=== PATIENT | female | born 1995 | race Caucasian/White ===

== ENCOUNTER 2023-11-27 11:08 | Outpatient (CLI) | payer OTHER, SELFPAY ==
[2023-11-27 11:48] LABS: Basophils Percent Auto 0.4 % (0.2-1.2); Eosinophils Percent Auto 0.6 % (0-4.4); Hematocrit 44.1 % (37.0-47.0); Hemoglobin 14.1 g/dL (12.0-15.0); Immature Granulocyte Absolute 0.01 K/mm3 (0.00-0.031); Immature Granulocyte Percent A 0.2 % (0-0.5); Lymphocytes Absolute Auto 2.38 K/mm3 (0.9-3.2); Lymphocytes Percent Auto 43.8 % (18.3-44.2); Mean Corpuscular Hemoglobin 30.3 pg (26-34); Mean Corpuscular Volume 94.6 fl (80-100); Mean Platelet Volume 10.7 fl (7.4-10.4); Monocytes Absolute Auto 0.3 K/mm3 (0.1-0.6); Monocytes Percent Auto 5.9 % (2.6-8.5); Neutrophils Absolute Auto 2.7 K/mm3 (1.3-6.7); Neutrophils Percent Auto 49.1 % (45.5-73.1); Platelet Count Result 257 k/mm3 (150-375); Red Blood Count 4.66 M/mm3 (4.2-5.4); Red Cell Distribution Width 13.4 % (11.5-14.5); White Blood Count 5.4 K/mm3 (4.5-10.0)
[2023-11-27 12:01] LABS: Alanine Aminotransferase 35 U/L (6-35); Albumin Level 4.4 g/dL (3.5-5.1); Alkaline Phosphatase 68 U/L (38-126); Anion Gap 8 mmol/L (4-12); Aspartate Amino Transferase 34 U/L (14-36); Bilirubin,Total 0.6 mg/dL (0.2-1.3); Blood Urea Nitrogen 12 mg/dL (7-17); Calcium 9.5 mg/dL (8.4-10.2); Carbon Dioxide 26 mmol/L (22-30); Chloride 103 mmol/L (98-107); Cholesterol 215 mg/dL (0-200); Estimated Glomerular Filt Rate > 60; Glucose 90 mg/dL (65-110); HDL Direct 77 mg/dL; Sodium 137 mmol/L (137-145); Triglycerides 123 mg/dL (<150)
[2023-11-27 12:12] LABS: LDL Cholesterol Direct 114 mg/dL
[2023-11-27 13:23] LABS: Hemoglobin A1C 5.5 % (<5.7)
== END 2023-11-27 11:09 | disposition home or self-care (01) ==
LOC: ANHLAB 11:16
PROVIDERS: PCP Family Medicine; Visit Provider Family Medicine
DX: R53.83 Other fatigue (principal); E78.2 Mixed hyperlipidemia; E01.0 Iodine-deficiency related diffuse (endemic) goiter; Z83.3 Family history of diabetes mellitus
CPT/HCPCS: 36415; 80053; 80061; 83036; 84443; 85025

== ENCOUNTER 2023-12-03 14:42 | Outpatient (CLI) | payer OTHER, SELFPAY ==
--- NOTE | ~2023-12-03 | US_ITS ---
EXAMINATION: US thyroid DATE: 12/03/2023 16:25 INDICATION: Iron deficiency related diffuse goiter. TECHNIQUE: Multiple ultrasound images of the thyroid were obtained. COMPARISON: None. FINDINGS: The right thyroid lobe measures 5.9 x 2.0 x 1.9 cm. The left thyroid lobe measures 5.2 x 1.2 x 1.9 c m. In the right thyroid lobe, there is a 10 mm predominantly solid, very hypoechoic, wider than tall nodule with smooth margin without echogenic foci (TI-RADS TR4). IMPRESSION: 1. Small thyroid nodule. Thyroid ultrasound is recommended in one year. Reviewed, dictated and finalized at location A.
== END 2023-12-03 14:43 | disposition home or self-care (01) ==
PROVIDERS: PCP Family Medicine; Visit Provider Family Medicine
DX: E01.0 Iodine-deficiency related diffuse (endemic) goiter (principal)
CPT/HCPCS: 76536

== ENCOUNTER 2023-12-17 10:50 | Emergency (ER) | payer OTHER, SELFPAY ==
--- NOTE | ~2023-12-17 | CT_ITS ---
EXAMINATION: CT cervical spine wo con DATE: 12/17/2023 12:22 INDICATION: Nontraumatic neck pain with numbness of the upper extremities. TECHNIQUE: Computed tomography (CT) of the cervical spine was performed without intravenous contrast. Automated exposure control and iterative reconstruction technique were employed. The dose-length pro duct was 518.50 mGy-cm. COMPARISON: None FINDINGS: Slight reversal of the normal cervical lordosis which could be positional or due to muscle spasm. No spondylolisthesis or facet subluxation. Vertebral body and disc heights are normal. No fracture. Smal l lucent hemangioma with thickened internal trabecula pattern at the C7 vertebral body. Minimal to mi ld cervical facet and uncovertebral osteoarthritis without associated neural foraminal stenosis. Ther e is suggestion of a disc bulges resulting in mild central canal stenosis at C6-C7. Cervical soft tis sues are unremarkable. Visualized upper lungs and superior mediastinum are unremarkable. IMPRESSION: 1. Minimal cervical spondylosis. No acute osseous abnormality. 2. Slight reversal of the normal cervical lordosis which could be positional or due to muscle spasm. Reviewed, dictated and finalized at location A.
--- NOTE | ~2023-12-17 | CT_ITS ---
EXAMINATION: CT brain wo con DATE: 12/17/2023 12:22 INDICATION: Headache TECHNIQUE: Computed tomography (CT) of the head was performed without intravenous contrast. Sagittal and coronal reconstructions were performed. The mA was adjusted according to patient size. Iterative reconstruction technique was employed. The dose-length product was 529.67 mGy-cm. COMPARISON: None FINDINGS: No acute intracranial hemorrhage, acute infarction or abnormal extra axial fluid collection. Ventricl es are normal and symmetric. No mass/mass effect. Mild mucosal thickening in the right ethmoid sinus. The orbits and mastoid air cells are normal. IMPRESSION: 1. Normal brain. No acute intracranial process. Reviewed, dictated and finalized at location A.
--- NOTE | ~2023-12-17 | XR_ITS ---
EXAMINATION: XR chest 1V portable 12/17/2023 14:39 INDICATION: Back pain PROCEDURE: AP portable chest COMPARISON: No prior studies for comparison. FINDINGS: The lungs are clear. The cardiomediastinal silhouette is within normal limits. There are no pleural effusions. There is no pneumothorax suspected. IMPRESSION: 1: NO ACUTE CARDIOPULMONARY DISEASE. Reviewed, dictated and finalized at location B.
[2023-12-17 11:35] VITALS: BP 161/106; PULSE 88; RESP 18; TEMP 36.4; O2SAT 100
--- NOTE | 2023-12-17 12:07 | ED.HA ---
HPI - Headache General Chief Complaint: Headache Stated Complaint: HERNANDEZ and pain between shoulders x 6 days Time Seen by Provider: 12/17/23 12:10 Female presents to the emergency room for evaluation of a headache that is been present for 6 days. Patient states that she woke up with a headache. Headache is to the back of her head radiates into her posterior the C-spine. Her pain is worse when she rotates her head to either side, and when she shrugs her shoulders. Patient denies any known injury or trauma. Was seen in the at outside urgent care several days ago given injection of Toradol and Zofran, states no relief of her symptoms. States she is working in a stressful job and notes increased stress recently. Denies any vision changes or loss. Does endorse having in her ears. Denies recent fevers. Denies IV drug use. Related Data Home Medications Medication Instructions Recorded Confirmed norethindrone 1 mg-ethinyl 1 tablet PO DAILY 11/27/23 12/22/23 estradiol 35 mcg tablet (Alyacen) Allergies Allergy/AdvReac Type Severity Reaction Status Date / Time codeine AdvReac Severe Nausea Verified 12/22/23 08:28 setraline AdvReac Severe Nausea Uncoded 12/22/23 08:28 [facility] Past Medical History Medical History Anxiety FHx: diabetes mellitus GERD (gastroesophageal reflux disease) IBS (irritable bowel syndrome) Mass of head of pancreas Thyromegaly Surgical History Surgical History Hx of cholecystectomy Family History Family History Father Malignant neoplasm of prostate Hypertension Mother Diabetes mellitus Hypertension Heart murmur Sibling Depression Asthma Anxiety Grandparent Skin cancer (melanoma) Grandparent Colon cancer Social History Social History Smoking status: Never smoker Second hand tobacco smoke exposure: No Alcohol intake: never Substance use: never Substance use type: does not use Do You Feel Safe in your Home?: Yes Lack of Transportation: No Lack of Food: Never True Current Housing: I Have Housing Concerned About Future Housing: No Difficulty Paying Gas/Electric Bills: No Difficulty Paying for Meds: No Currently Unemployed: No Education: High School Diploma/GED Difficulty w/ Childcare or Family Care: No Living arrangements: with family Occupation/Education: occupation Gender identity (if verbalized by the patient): Female Sexual Orientation (if Verbalized by the Patient): Straight or Heterosexual Spiritual care concerns: No Agree to blood products: No Course Vital Signs Vital signs: Vital Signs Temperature 36.4 C 12/17/23 11:35 Pulse Rate 88 12/17/23 11:35 Respiratory Rate 18 12/17/23 11:35 Blood Pressure 161/106 H 12/17/23 11:35 Pulse Oximetry 100 12/17/23 11:35 Oxygen Delivery Room Air 12/17/23 11:35 Temperature 36.4 C 12/17/23 11:35 Pulse Rate 89 12/17/23 14:27 Respiratory Rate 18 12/17/23 14:27 Blood Pressure 149/80 H 12/17/23 14:27 Pulse Oximetry 100 12/17/23 14:27 Oxygen Delivery Room Air 12/17/23 11:35 MDM - Headache Lab Data 12/17/23 12:29 12/17/23 12:29 Labs: Lab Results 12/17/23 Range/Units 12:29 WBC 7.1 (4.5-10.0) K/mm3 RBC 4.49 (4.2-5.4) M/mm3 Hgb 13.6 (12.0-15.0) g/dL Hct 41.8 (37.0-47.0) % MCV 93.1 (80-100) fl MCH 30.3 (26-34) pg MCHC 32.5 (32-36) g/dl RDW 13.4 (11.5-14.5) % Plt Count 256 (150-375) k/mm3 MPV 10.8 H (7.4-10.4) fl Immature Gran % (Auto) 0.3 (0-0.5) % Neut % (Auto) 63.2 (45.5-73.1) % Lymph % (Auto) 30.6 (18.3-44.2) % [place] % (Auto) 5.2 (2.6-8.5) % Eos % (Auto) 0.4 (0-4.4) % Baso % (Auto) 0.3 (0.2-1.2) % Lymph # (Aut
--- NOTE | 2023-12-17 12:12 | ED.HA ---
HPI - Headache General Chief Complaint: Headache Stated Complaint: HERNANDEZ and pain between shoulders x 6 days Time Seen by Provider: 12/17/23 12:10 Source: patient History of Present Illness HPI Narrative: 28 YEARS OLD WHITE MALE CAME TO THE ED BY PRIVATE CAR WITH ANOTHER COMPLAINING OF GENERALIZED HEADACHE STARTED 1 WEEK AGO, RADIATING TO THE BACK OF HER NECK, ALSO COMPLAINING OF NUMBNESS TINGLING OF THE UPPER EXTREMITIES AND HANDS NOTICED OVER THE LAST FEW DAYS. PATIENT REPORTS ALSO PAIN BETWEEN HER SHOULDER BLADES. 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 PATIENT REPORT HAVING SIMILAR HEADACHE 8 YEARS AGO WHICH RESOLVED SPONTANEOUSLY AND AFTER BEEN SEEN BY [facility]IROPRACTOR. PATIENT BEEN SEEING CHIROPRACTOR FOR THE LAST 2 DAYS WITHOUT IMPROVEMENT. SHE DENIES ANY FEVER, CHILLS, CHEST PAIN SHORTNESS OF BREATH VISION CHANGE UPPER RESPIRATORY SYMPTOMS EAR ACHE SORE THROAT. HISTORY OF GERD, DOES NOT SMOKE OR DRINK OR USE DRUGS. THE HEADACHE IS GENERALIZED, SQUEEZING, WORSE WITH LAYING DOWN FLAT AND LIGHT ON A L SITTING UP AND STANDING. Related Data Home Medications Medication Instructions Recorded Confirmed norethindrone 1 mg-ethinyl 1 tablet PO DAILY 11/27/23 11/27/23 estradiol 35 mcg tablet (Alyacen) Allergies Allergy/AdvReac Type Severity Reaction Status Date / Time codeine AdvReac Severe Nausea Verified 11/27/23 10:13 setraline AdvReac Severe Nausea Uncoded 11/27/23 10:13 Review of Systems Review of Systems: All systems reviewed & are unremarkable except as noted in HPI and below PMFSH Past Medical History Medical History Anxiety FHx: diabetes mellitus GERD (gastroesophageal reflux disease) IBS (irritable bowel syndrome) Mass of head of pancreas Thyromegaly Surgical History Surgical History Hx of cholecystectomy Family History Family History Father Malignant neoplasm of prostate Hypertension Mother Diabetes mellitus Hypertension Heart murmur Sibling Depression Asthma Anxiety Grandparent Skin cancer (melanoma) Grandparent Colon cancer Social History Social History Smoking status: Never smoker Second hand tobacco smoke exposure: No Alcohol intake: never Substance use: never Substance use type: does not use Do You Feel Safe in your Home?: Yes Lack of Transportation: No Lack of Food: Never True Current Housing: I Have Housing Concerned About Future Housing: No Difficulty Paying Gas/Electric Bills: No Difficulty Paying for Meds: No Currently Unemployed: No Education: High School Diploma/GED Difficulty w/ Childcare or Family Care: No Living arrangements: with family Occupation/Education: occupation Gender identity (if verbalized by the patient): Female Sexual Orientation (if Verbalized by the Patient): Straight or Heterosexual Spiritual care concerns: No Agree to blood products: No Exam Narrative: GENERAL APPEARANCE: WELL-DEVELOPED, WELL-NOURISHED SKIN: NORMAL COLOR HEAD: NORMOCEPHALIC, NONTRAUMATIC EYES: CLEAR CONJUNCTIVA ENT: OROPHARYNX NORMAL, EARS NORMAL, NOSE NORMAL NECK: SUPPLE, SLIGHT DIFFUSE TENDERNESS, NO BRUISES OR RASH OR SWELLING SLIGHT LIMITED RANGE OF MOTION CHEST AND RESPIRATORY: AIRWAY PATENT, NO RESPIRATORY DISTRESS, NO ACCESSORY MUSCLE USE HEART: REGULAR RATE/RHYTHM ABDOMEN: SOFT, NONTENDER, NO ORGANOMEGALY, QUIET BOWEL SOUNDS VASCULAR: NORMAL PERIPHERAL PULSES, NORMAL CAPILLARY REFILL. MUSCULOSKELETAL: NORMAL RANGE OF MOTION, NONTENDER BACK NEUROLOGIC: ALERT AND ORIENTED ?3, CONTROL CHEMIST IS NORMAL TESTED, NO GROSS MOTOR DEFICIT
[2023-12-17] MEDS: dexAMETHasone SOD PHOS INJ 10 MG/ML 1 ML VIAL IV PUSH (12:39)
[2023-12-17] MEDS: SODIUM CHLORIDE 0.9% IV 1,000 ML 999 ML IV CONT (12:39)
[2023-12-17] MEDS: KETOROLAC 30 MG/ML VIAL (*BKC) IV PUSH (12:41)
[2023-12-17] MEDS: diphenhydrAMINE HCl INJ 50 MG/ML VIAL 25 MG IV PUSH (12:41)
[2023-12-17] MEDS: METOCLOPRAMIDE HCL INJ 10 MG/2 ML VIAL IV PUSH (12:41)
[2023-12-17 12:53] LABS: Basophils Percent Auto 0.3 % (0.2-1.2); Eosinophils Percent Auto 0.4 % (0-4.4); Hematocrit 41.8 % (37.0-47.0); Hemoglobin 13.6 g/dL (12.0-15.0); Immature Granulocyte Absolute 0.02 K/mm3 (0.00-0.031); Immature Granulocyte Percent A 0.3 % (0-0.5); Lymphocytes Absolute Auto 2.16 K/mm3 (0.9-3.2); Lymphocytes Percent Auto 30.6 % (18.3-44.2); Mean Corpuscular HGB Conc 32.5 g/dl (32-36); Mean Corpuscular Hemoglobin 30.3 pg (26-34); Mean Corpuscular Volume 93.1 fl (80-100); Mean Platelet Volume 10.8 fl (7.4-10.4); Monocytes Absolute Auto 0.4 K/mm3 (0.1-0.6); Monocytes Percent Auto 5.2 % (2.6-8.5); Neutrophils Absolute Auto 4.5 K/mm3 (1.3-6.7); Neutrophils Percent Auto 63.2 % (45.5-73.1); Platelet Count Result 256 k/mm3 (150-375); Red Blood Count 4.49 M/mm3 (4.2-5.4); Red Cell Distribution Width 13.4 % (11.5-14.5); White Blood Count 7.1 K/mm3 (4.5-10.0)
[2023-12-17 12:59] LABS: Appearance Urine Cloudy (Clear); Bacteria Urine 1+ /hpf; Bilirubin Urine Negative (Negative); Blood Urine Trace (Negative); Color Urine Yellow (Yellow); Glucose Urine UA Negative (Negative); Ketones Urine Trace mg/dL (Negative); Leukocyte Esterase Ur 2+ LEU/UL (Negative); Nitrate Urine Negative (Negative); Protein Urine Trace mg/dL (Negative); Specific Grav Ur 1.028 (1.001-1.035); Squamous Epithelial Cell Urine Few /hpf (Few); Urobilinogen Urine 0.2 mg/dL (<2.0); WBC Urine 21-50 /hpf (0-3); pH Urine 5.5 (5.0-9.0)
[2023-12-17 13:00] LABS: Add Urine Microscopic? YES
[2023-12-17 13:04] LABS: Alanine Aminotransferase 17 U/L (6-35); Albumin Level 4.5 g/dL (3.5-5.1); Alkaline Phosphatase 63 U/L (38-126); Anion Gap 8 mmol/L (4-12); Aspartate Amino Transferase 21 U/L (14-36); Bilirubin,Total 0.4 mg/dL (0.2-1.3); Blood Urea Nitrogen 12 mg/dL (7-17); Calcium 9.6 mg/dL (8.4-10.2); Carbon Dioxide 25 mmol/L (22-30); Chloride 105 mmol/L (98-107); Estimated CRCL calculation 183 ml/min; Estimated Glomerular Filt Rate > 60; Glucose 88 mg/dL (65-110); Sodium 138 mmol/L (137-145)
[2023-12-17 13:08] VITALS: BP 134/77; PULSE 74; RESP 15; O2SAT 99
[2023-12-17 14:27] VITALS: BP 149/80; PULSE 89; RESP 18; O2SAT 100
[2023-12-17] MEDS: diazePAM (*CRX) 5 MG TABLET PO (14:38)
== END 2023-12-17 15:24 | disposition home or self-care (01) ==
PROVIDERS: Nurse Practitioner Family; Emergency Provider Emergency Medicine; PCP Family Medicine
DX: R51.9 Headache, unspecified (principal); N39.0 Urinary tract infection, site not specified; M47.22 Other spondylosis with radiculopathy, cervical region; E01.0 Iodine-deficiency related diffuse (endemic) goiter; K21.9 Gastro-esophageal reflux disease without esophagitis; K58.9 Irritable bowel syndrome, unspecified; Z90.49 Acquired absence of other specified parts of digestive tract
CPT/HCPCS: 36415; 70450; 71045; 72125; 80053; 81001; 81025; 85025; 87086; 87088; 96361; 96365; 96375; 99284; A9270; J0696; J1100; J1200; J1885; J2765; J7030

== ENCOUNTER 2024-01-02 11:49 | Outpatient (CLI) | payer OTHER, SELFPAY ==
--- NOTE | ~2024-01-02 | MR_ITS ---
EXAMINATION: MR brain/brain stem wo/w con DATE: 01/02/2024 13:11 INDICATION: Headache, unspecified. TECHNIQUE: Magnetic resonance imaging (MRI) of the brain and brainstem was performed without and with 20 mL MultiHance intravenous contrast. COMPARISON: Head CT 12/17/2023 FINDINGS: There is no intracranial hemorrhage, acute infarction, or abnormal intracranial mass lesion . The ventricles are normal in size. The paranasal sinuses are clear. The mastoid air cells are gabriella l. The orbits are normal. IMPRESSION: 1. Normal brain. Reviewed, dictated and finalized at location A. IMPRESSION: 1. Normal brain.
--- NOTE | ~2024-01-02 | MR_ITS ---
EXAMINATION: MR cervical spine wo con DATE: 01/02/2024 12:59 INDICATION: Cervical radiculopathy. TECHNIQUE: Magnetic resonance imaging (MRI) of the cervical spine was performed without intravenous c ontrast. COMPARISON: CT cervical spine 12/17/2023 FINDINGS: There is hypolordosis of cervical spine. Vertebral body heights are normal. Intervertebral disc heights are normal. There is a hemangioma in C7 vertebral body. The spinal cord signal intensity is normal. The following disc levels are specifically discussed: C2-C3: The disc does not extend beyond the endplate margin. There is no uncovertebral joint osteoarth ritis. There is mild left facet joint osteoarthritis. There is no neural foraminal stenosis. There is no central canal stenosis. C3-C4: The disc does not extend beyond the endplate margin. There is mild bilateral uncovertebral kirill nt osteoarthritis. There is mild right facet joint osteoarthritis. There is no neural foraminal steno sis. There is no central canal stenosis. C4-C5: The disc does not extend beyond the endplate margin. There is no uncovertebral joint osteoarth ritis. There is no facet joint osteoarthritis. There is no neural foraminal stenosis. There is no portia tral canal stenosis. C5-C6: There is a central extrusion. There is no uncovertebral joint osteoarthritis. There is no face t joint osteoarthritis. There is no neural foraminal stenosis. There is mild central canal stenosis. C6-C7: There is a central extrusion. There is no uncovertebral joint osteoarthritis. There is no face t joint osteoarthritis. There is no neural foraminal stenosis. There is mild central canal stenosis. C7-T1: The disc does not extend beyond the endplate margin. There is no uncovertebral joint osteoarth ritis. There is no facet joint osteoarthritis. There is no neural foraminal stenosis. There is no portia tral canal stenosis. IMPRESSION: 1. Mild cervical spondylosis. Reviewed, dictated and finalized at location A.
--- NOTE | ~2024-01-02 | XR_ITS ---
EXAMINATION: XR lumbar spine min 4V DATE: 01/02/2024 12:15 INDICATION: Low back pain, unspecified. TECHNIQUE: 5 views of lumbar spine were obtained. COMPARISON: None. FINDINGS: There is 4 degrees levocurvature of thoracolumbar spine. There is mild chronic anterior wed ging of T11 and T12 vertebral bodies. Intervertebral disc heights are normal. The facet joints are no rmal. IMPRESSION: 1. No etiology for the patient's symptoms. Reviewed, dictated and finalized at location A.
== END 2024-01-02 11:50 | disposition home or self-care (01) ==
LOC: ANHIMG 11:54
PROVIDERS: PCP Family Medicine; Visit Provider Family Medicine
DX: R51.9 Headache, unspecified (principal); H53.9 Unspecified visual disturbance; R20.0 Anesthesia of skin; R29.898 Other symptoms and signs involving the musculoskeletal system; M47.892 Other spondylosis, cervical region
CPT/HCPCS: 70553; 72110; 72141; A9577

== ENCOUNTER 2024-05-31 10:22 | Outpatient (CLI) | payer OTHER, SELFPAY ==
--- NOTE | ~2024-05-31 | MR_ITS ---
EXAMINATION: MR MRCP wo/w con/w 3D wo ind DATE: 05/31/2024 11:18 INDICATION: Other specified diseases of pancreas. TECHNIQUE: Magnetic resonance imaging (MRI) of the abdomen was performed without and with 20 mL Multi Porfirio intravenous contrast. Sequences included coronal T2-weighted FS FSE, coronal T2-weighted FSE, a xial T1-weighted LAVA, coronal FS FIESTA, axial dual-echo T1-weighted SPGR, coronal lava-FLEX, sagitt al T2-weighted FSE, axial T2-weighted FSE, and axial DWI. Thick-slab T2-weighted FSE images were obta ined for magnetic resonance cholangiopancreatography (MRCP). Maximum intensity projection 3-D reconst ructions of the volumetric data were created by the technologist. Postcontrast sequences included cor onal LAVA-flex and time course of axial T1-weighted LAVA. COMPARISON: None. FINDINGS: ABDOMEN MRI: The liver is normal. The gallbladder is absent. There is an 8 mm cyst in the head of the pancreas. The pancreatic duct is normal in caliber. The spleen, adrenal glands, and kidneys are norm al. There are no dilated loops of bowel. There are no pathologically enlarged lymph nodes. There is n o free intraperitoneal fluid. ABDOMEN MRCP: The common duct is normal and measures 5 mm. No choledocholithiasis. IMPRESSION: 1. 8 mm low-risk cyst in the head of the pancreas. The differential diagnosis includes pseudocyst, in traductal papillary mucinous neoplasm (IPMN), mucinous cystic neoplasm (MCN), serous cystadenoma, and neuroendocrine tumor. Abdomen MRI without and with contrast is recommended in one year. Reviewed, dictated and finalized at location A. IMPRESSION: 1. 8 mm low-risk cyst in the head of the pancreas. The differential diagnosis i ncludes pseudocyst, intraductal papillary mucinous neoplasm (IPMN), mucinous cy stic neoplasm (MCN), serous cystadenoma, and neuroendocrine tumor. Abdomen MRI without and with contrast is recommended in one year.
== END 2024-05-31 10:23 | disposition home or self-care (01) ==
PROVIDERS: PCP Family Medicine; Visit Provider Family Medicine
DX: K86.89 Other specified diseases of pancreas (principal)
CPT/HCPCS: 74183; 76376; A9577